=== PATIENT | female | born 1985 | race Caucasian/White ===

== ENCOUNTER → 2019-12-29 09:32 | Outpatient (BNVA) | payer MEDICAID, SELFPAY | PROVIDERS: Family Provider Nurse Practitioner Family; Referring Provider Nurse Practitioner Family; Visit Provider Internal Medicine | DX: E03.9 Hypothyroidism, unspecified (principal); E66.9 Obesity, unspecified; Z87.42 Personal history of other diseases of the female genital tract | CPT/HCPCS: 99204 ==

== ENCOUNTER 2021-01-14 15:26 | Emergency (ER) | payer MEDICAID, SELFPAY ==
[2021-01-14 15:43] VITALS: BP 139/90; PULSE 106; RESP 24; TEMP 36.7; O2SAT 96; BMI 34.4
[2021-01-14 17:00] VITALS: BP 158/100; PULSE 112; RESP 28; O2SAT 94
--- NOTE | 2021-01-14 17:09 | XRR_ITS ---
PROCEDURE INFORMATION: Exam: XR Chest Exam date and time: 01/14/2021 5:09 PM Age: 36 years old Clinical indication: Shortness of breath; Additional info: Dyspnea/cough TECHNIQUE: Imaging protocol: XR of the chest. Views: 1 view. COMPARISON: [place] Chest 1 [place] [id number] 07/09/2018 3:23 PM FINDINGS: Lungs: Small areas of patchy ground-glass foci at the left lung base laterally. Reduced lung volumes. Some increase in streak like infrahilar interstitial markings in the medial right lower lobe. Pleural spaces: Unremarkable. No pleural effusion. No pneumothorax. Heart/Mediastinum: Unremarkable. No cardiomegaly. Bones/joints: Unremarkable. XR/XR chest 1V portable [id number] IMPRESSION: Cannot exclude small patchy areas of nonspecific pneumonia in the lung bases greater on left than right. Radiation Dose CTDIVOL = (mGy): DLP = (mGy-cm)
--- NOTE | 2021-01-14 17:10 | W.ED.CHESTPA ---
Documented by User: Singh Erazo DO 01/16/21 06:51 HPI - Chest Pain General: Chief Complaint: Chest Pain Stated Complaint: CP, RAPID HR Time Seen by Provider: 01/14/21 16:46 History of Present Illness: HPI narrative: 36-year-old female presents emergency room with several days of chest discomfort. She states is very positional when she lays when she lays down it gets worse it also gets worse when she coughs. She has coughed up to the point of throwing up, but she is not had any nausea or diarrhea. No fever. Pain is reproducible with palpation along the right side of the sternum. She has some mild chest discomfort at this time it is very reproducible with palpation across the sternum. MD complaint: chest pain Onset (ago): day(s) Timing of current episode: episodic Onset: during rest Pain location: parasternal (right) Pain radiation: none Quality: sharp Exacerbating factors: palpation Associated symptoms: Reports palpitations and vomiting; Deny abdominal pain, diaphoresis, dyspnea, fever(s), leg edema, nausea, sense of impending doom or syncope Treatment prior to arrival: none Review of Systems Const: Denies: fever(s) or diaphoresis ENMT: Denies: throat pain, ear or mastoid pain, nasal discharge or nasal congestion Card: Reports: palpitations; Denies: syncope Resp: Denies: dyspnea GI: Reports: vomiting; Denies: abdominal pain or nausea : Denies: flank pain, difficulty voiding, dysuria, urinary frequency or urinary urgency Skin/Breast: Denies: rash or pruritus PFS ED PFSH: Medical History Bipolar 1 disorder PTSD (post-traumatic stress disorder) Tubal ligation evaluation Surgical History H/O foot surgery Family History Mother CAD (coronary artery disease) Father Stroke Myocardial infarction Grandmother Cancer Social History Smoking and tobacco status: former smoker Alcohol intake: never Physical Exam Const: COMMON NORMALS: no acute distress GENERAL APPEARANCE: cooperative and comfortable ORIENTATION/CONSCIOUSNESS: Yes awake, Yes oriented to person, Yes oriented to place and Yes oriented to time HENMT: COMMON NORMALS: normocephalic, atraumatic and hearing grossly normal bilaterally HEAD & SCALP: normocephalic and atraumatic Neck/C-Spine: COMMON NORMALS: no JVD Resp: COMMON NORMALS: normal respiratory effort, No retractions, No use of accessory muscles and clear to auscultation bilaterally AUSCULTATION: clear to auscultation bilaterally Cardio: COMMON NORMALS: no JVD, regular rate, regular rhythm and No murmurs present (Cardio) RATE: regular rate RHYTHM: regular rhythm GI: COMMON NORMALS: Soft to palpation and No hepatosplenomegaly present AUSCULTATION: Yes normoactive bowel sounds PALPATION: Yes Soft to palpation, No Tenderness to palpation present (GI), No Guarding due to palpation present (GI) and Yes No hepatosplenomegaly present Extremity: COMMON NORMALS: normal to inspection, capillary refill normal, no clubbing, cyanosis or edema, no calf tenderness and no pedal edema Neuro: SENSORIUM/ORIENTATION: Yes oriented to person, Yes oriented to place and Yes oriented to time Skin: COMMON NORMALS: no rashes or lesions noted GENERAL SKIN EXAM: no rashes or lesions noted Course Vital Signs: Vital signs: Vital Signs Temperature 98.0 F 01/14/21 15:43 Pulse Rate 108 H 01/14/21 22:22 Respiratory Rate 23 H 01/14/21 22:22 Blood Pressure 138/99 01/14/21 22:22 Pulse Oximetry 99 01/14/21 22:22 MDM - Chest Pain MDM Narrative: Medical decision making narrative: Care turned over to Dr. Dowling at change shift see his notes from diagnosis and disposition. Lab Data: Labs: Lab Results 01/14/21 01/14/21 01/14/21 17:33 17:33 17:33 WBC 4.3 10^3/uL 10^3/ uL (4.0-10.0) RBC 5.53 10^6/uL H 10 ^6/uL (4.1-5.3) Hgb 16.7 g/dL H g/dL (11.5-15.3) Hct 49.6 % H % (37.0-47.0) MCV 89.7 fl fl (81-99) MCH 30.2 pg pg (28.0-34.0) MCHC 33.7 g/dL g/dL (30.0-36.0) RDW 12.6 % % (12.1-15.1) Plt Count 229 10^3/cmm 10^3 /cmm (130-400) MPV 10.2 fL fL (7.4-10.4) Neut % (Auto) 65.5 % % Lymph % (Auto) 24.9 % % Ector % (Auto) 9.2 % % Eos % (Auto) 0.0 % % Baso % (Auto) 0.2 % % Neut # (Auto) 2.84 10^3/uL 10^3 /uL (1.8-7.7) Lymph # (Auto) 1.1 10^3/uL 10^3/ uL (0.8-4.8) Ector # (Auto) 0.4 10^3/uL 10^3/ uL (0.2-0.9) Eos # (Auto) 0.0 10^3/uL 10^3/ uL (0.0-0.8) Baso # (Auto) 0.0 10^3/uL 10^3/ uL (0.0-0.1) Nucleated RBC % (a uto) 0 % % Nucleated RBCs # 0.0 /100WBC /100W BC D-Dimer Sodium 136 mmol/L mmol/L (136-145) Potassium 3.1 mmol/L L mmol /L (3.5-5.1) Chloride 96 mmol/L L mmol/ L (98-107) Carbon Dioxide 29 mmol/L mmol/L (22-29) Anion Gap 14.1 (5-19) BUN 6 mg/dL mg/dL (6-20) Creatinine 0.5 mg/dL mg/dL (0.5-0.9) GFR Calculation 138.8 mL/min H mL /min (90-130) Glucose 96 mg/dL mg/dL (65-115) Calculated Osmolal ity 279 mOsm/kg L mOs m/kg (285-295) Calcium 8.7 mg/dL mg/dL (8.5-10.5) Total Bilirubin 0.8 mg/dL mg/dL (0.15-1.2) AST 39 U/L H U/L (0-32) ALT 50 U/L H U/L (0-33) Alkaline Phosphata se 110 IU/L H IU/L (35-105) Troponin T Baselin e 6 ng/L ng/L (0-10) Troponin T 120 [place] Troponin T Total Protein 7.1 g/dL g/dL (6.6-8.7) Albumin 4.3 g/dL g/dL (3.5-5.2) Globulin 2.8 g/dL g/dL (1.3-4.6) 01/14/21 01/14/21 17:33 19:50 WBC RBC Hgb Hct MCV MCH MCHC RDW Plt Count MPV Neut % (Auto) Lymph % (Auto) Ector % (Auto) Eos % (Auto) Baso % (Auto) Neut # (Auto) Lymph # (Auto) Ector # (Auto) Eos # (Auto) Baso # (Auto) Nucleated RBC % (a uto) Nucleated RBCs # D-Dimer 0.32 ug/mIFEU ug/ mIFEU (0-0.59) Sodium Potassium Chloride Carbon Dioxide Anion Gap BUN Creatinine GFR Calculation Glucose Calculated Osmolal ity Calcium Total Bilirubin AST ALT Alkaline Phosphata se Troponin T Baselin e Troponin T 120 [place] 6.00 ng/L ng/L (0-10) Delta Troponin T 0 ABS# ABS# (0-10) Total Protein Albumin Globulin Discharge Plan Discharge Patient Disposition: Home Clinical Impression: Chest pain, Cough, Pneumonia Condition: Stable Prescriptions: New acetaminophen 500 mg tablet 500 mg PO Q6H PRN (Reason: pain) 10 Days Qty: 40 RF: 0 doxycycline hyclate 100 mg tablet 100 mg PO BID 10 Days Qty: 20 RF: 0 No Action buspirone 15 mg tablet 15 mg PO BID RF: 0 ibuprofen 800 mg tablet 800 mg PO TID RF: 0 Latuda 40 mg tablet 40 mg PO DAILY RF: 0 miconazole nitrate 2 % cream 1 applic TOPICAL DAILY RF: 0 norgestimate-ethinyl estradiol [Tri-Sprintec (28)] 0.18/0.215/0.25 mg-35 mcg (28) tablet 1 tab PO DAILY RF: 0 azithromycin [Zithromax Z-Mo] 250 mg tablet See Rx Instructions PO .COMPLEX RF: 0 Tirosint 13 mcg capsule 13 mcg PO DAILY Qty: 90 RF: 0 Discharge Orders: Discharge ED (Routine); Ordered 01/14/21 Ordered By: To Dowling Referrals: Radha Ron FNP-C [Primary Care Provider] - Discharge Diet: Advance as tolerated Discharge Activity: Resume usual activity Patient Instructions: Chest Pain (ED) Activity Restrictions/Additional Instructions: Come back to the emergency room if your chest pain worsens, if any fever or chills, if have any new or concerning complaints. Stand Alone Forms: Work/School Release Coding Level of Care Code ED Records Analyst for Chg Fwd Exam Comprehensive Documented by User: To Dowling MD 01/17/21 20:16 HPI - Chest Pain General: Chief Complaint: Chest Pain Stated Complaint: CP, RAPID HR Time Seen by Provider: 01/14/21 16:46 PFSH ED PFSH: Medical History Bipolar 1 disorder PTSD (post-traumatic stress disorder) Tubal ligation evaluation Surgical History H/O foot surgery Family History Mother CAD (coronary artery disease) Father Stroke Myocardial infarction Grandmother Cancer Social History Smoking and tobacco status: former smoker Alcohol intake: never Course Vital Signs: Vital signs: Vital Signs Temperature 98.0 F 01/14/21 15:43 Pulse Rate 108 H 01/14/21 22:22 Respiratory Rate 23 H 01/14/21 22:22 Blood Pressure 138/99 01/14/21 22:22 Pulse Oximetry 99 01/14/21 22:22 MDM - Chest Pain MDM Narrative: Medical decision making narrative: 36-year-old female presenting to the emergency room with sudden onset of chest pain. On exam, patient is hemodynamically stable without any focal complaints. EKG is nonischemic today. Troponin x2 within normal limit. D-dimer within normal limit. Patient says the pain improved with Tylenol. Patient is able to tolerate p.o. without difficult. Chest x-ray showed small area of atelectasis. However patient has not had any cough, fever, sputum production and I do not suspect that this is pneumonia. Decision was made to not DC patient with antibiotics at this time. Doubt ACS/PE or other emergent causes of chest pain. No suspicion for aortic dissection given no widened mediastinum, 2+ upper extremity pulses, or tearing pain. No suspicion for PE given no pleuritic chest pain, recent immobilization or surgery hemoptysis, or other VTE risk factors. EKG is non-ischemic. XR showed possible PNA. In the setting of cough and prior PNA, will treat today. Rx doxycycline BID x 10 days. Disposition: Discharge. Patient counseled regarding diagnostic impression, treatment plan. Patient given ED strict return precautions to return for continuation, worsening, or development of new symptoms. Instructed to f/u w/ PCP regarding symptoms today. Patient verbalized understanding. Lab Data: Labs: Lab Results 01/14/21 01/14/21 01/14/21 17:33 17:33 17:33 WBC 4.3 10^3/uL 10^3/ uL (4.0-10.0) RBC 5.53 10^6/uL H 10 ^6/uL (4.1-5.3) Hgb 16.7 g/dL H g/dL (11.5-15.3) Hct 49.6 % H % (37.0-47.0) MCV 89.7 fl fl (81-99) MCH 30.2 pg pg (28.0-34.0) MCHC 33.7 g/dL g/dL (30.0-36.0) RDW 12.6 % % (12.1-15.1) Plt Count 229 10^3/cmm 10^3 /cmm (130-400) MPV 10.2 fL fL (7.4-10.4) Neut % (Auto) 65.5 % % Lymph % (Auto) 24.9 % % Ector % (Auto) 9.2 % % Eos % (Auto) 0.0 % % Baso % (Auto) 0.2 % % Neut # (Auto) 2.84 10^3/uL 10^3 /uL (1.8-7.7) Lymph # (Auto) 1.1 10^3/uL 10^3/ uL (0.8-4.8) Ector # (Auto) 0.4 10^3/uL 10^3/ uL (0.2-0.9) Eos # (Auto) 0.0 10^3/uL 10^3/ uL (0.0-0.8) Baso # (Auto) 0.0 10^3/uL 10^3/ uL (0.0-0.1) Nucleated RBC % (a uto) 0 % % Nucleated RBCs # 0.0 /100WBC /100W BC D-Dimer Sodium 136 mmol/L mmol/L (136-145) Potassium 3.1 mmol/L L mmol /L (3.5-5.1) Chloride 96 mmol/L L mmol/ L (98-107) Carbon Dioxide 29 mmol/L mmol/L (22-29) Anion Gap 14.1 (5-19) BUN 6 mg/dL mg/dL (6-20) Creatinine 0.5 mg/dL mg/dL (0.5-0.9) GFR Calculation 138.8 mL/min H mL /min (90-130) Glucose 96 mg/dL mg/dL (65-115) Calculated Osmolal ity 279 mOsm/kg L mOs m/kg (285-295) Calcium 8.7 mg/dL mg/dL (8.5-10.5) Total Bilirubin 0.8 mg/dL mg/dL (0.15-1.2) AST 39 U/L H U/L (0-32) ALT 50 U/L H U/L (0-33) Alkaline Phosphata se 110 IU/L H IU/L (35-105) Troponin T Baselin e 6 ng/L ng/L (0-10) Troponin T 120 [place] Troponin T Total Protein 7.1 g/dL g/dL (6.6-8.7) Albumin 4.3 g/dL g/dL (3.5-5.2) Globulin 2.8 g/dL g/dL (1.3-4.6) 01/14/21 01/14/21 17:33 19:50 WBC RBC Hgb Hct MCV MCH MCHC RDW Plt Count MPV Neut % (Auto) Lymph % (Auto) [place] % (Auto) Eos % (Auto) Baso % (Auto) Neut # (Auto) Lymph # (Auto) [place] # (Auto) Eos # (Auto) Baso # (Auto) Nucleated RBC % (a uto) Nucleated RBCs # D-Dimer 0.32 ug/mIFEU ug/ mIFEU (0-0.59) Sodium Potassium Chloride Carbon Dioxide Anion Gap BUN Creatinine GFR Calculation Glucose Calculated Osmolal ity Calcium Total Bilirubin AST ALT Alkaline Phosphata se Troponin T Baselin e Troponin T 120 [place] 6.00 ng/L ng/L (0-10) Delta Troponin T 0 ABS# ABS# (0-10) Total Protein Albumin Globulin Imaging Data^: Other Imaging: Radiologist's impression: [address] [id number] ReportSigned Patient: Nerissa Mckinney IUnit #: [id number]: 1985Acct#:[id number]/Sex: 36 / FADM Date: 01/14/21Loc: ERRoom/Bed:Attending Dr: Ordering Provider/Ordering MD: Singh Erazo DO Date of Service: 01/14/21 Procedure(s): XR chest 1V portable [id number] Accession Number(s): [id number] Report Number: [id number] PROCEDURE INFORMATION: Exam: XR Chest Exam date and time: 01/14/2021 5:09 PM Age: 36 years old Clinical indication: Shortness of breath; Additional info: Dyspnea/cough TECHNIQUE: Imaging protocol: XR of the chest. Views: 1 view. COMPARISON: MD Chest 1 [place] [id number] 07/09/2018 3:23 PM FINDINGS: Lungs: Small areas of patchy ground-glass foci at the left lung base laterally. Reduced lung volumes. Some increase in streak like infrahilar interstitial markings in the medial right lower lobe. Pleural spaces: Unremarkable. No pleural effusion. No pneumothorax. Heart/Mediastinum: Unremarkable. No cardiomegaly. Bones/joints: Unremarkable. XR/XR chest 1V portable [id number] IMPRESSION: Cannot exclude small patchy areas of nonspecific pneumonia in the lung bases greater on left than right. Radiation Dose CTDIVOL = (mGy): DLP = (mGy-cm) Dictated By:Milka David By:Milka David Date/Time:01/14/211758DD/ 08 Discharge Plan Discharge Patient Disposition: Home Clinical Impression: Chest pain, Cough, Pneumonia Condition: Stable Prescriptions: New acetaminophen 500 mg tablet 500 mg PO Q6H PRN (Reason: pain) 10 Days Qty: 40 RF: 0 doxycycline hyclate 100 mg tablet 100 mg PO BID 10 Days Qty: 20 RF: 0 No Action buspirone 15 mg tablet 15 mg PO BID RF: 0 ibuprofen 800 mg tablet 800 mg PO TID RF: 0 Latuda 40 mg tablet 40 mg PO DAILY RF: 0 miconazole nitrate 2 % cream 1 applic TOPICAL DAILY RF: 0 norgestimate-ethinyl estradiol [Tri-Sprintec (28)] 0.18/0.215/0.25 mg-35 mcg (28) tablet 1 tab PO DAILY RF: 0 azithromycin [Zithromax Z-Mo] 250 mg tablet See Rx Instructions PO .COMPLEX RF: 0 Tirosint 13 mcg capsule 13 mcg PO DAILY Qty: 90 RF: 0 Discharge Orders: Discharge ED (Routine); Ordered 01/14/21 Ordered By: To Dowling Referrals: Radha Ron, [facility] [Primary Care Provider] - Discharge Diet: Advance as tolerated Discharge Activity: Resume usual activity Patient Instructions: Chest Pain (ED) Activity Restrictions/Additional Instructions: Come back to the emergency room if your chest pain worsens, if any fever or chills, if have any new or concerning complaints. Stand Alone Forms: Work/School Release Coding Level of Care Code ED Records Analyst for Chg Fwd Exam Comprehensive
[2021-01-14 17:47] LABS: Basophils % 0.2 %; Hematocrit 49.6 % (37.0-47.0); Hemoglobin 16.7 g/dL (11.5-15.3); Lymphocytes # 1.1 10^3/uL (0.8-4.8); Lymphocytes % 24.9 %; Mean Corpuscular HGB Conc 33.7 g/dL (30.0-36.0); Mean Corpuscular Hemoglobin 30.2 pg (28.0-34.0); Mean Corpuscular Volume 89.7 fl (81-99); Mean Platelet Volume 10.2 fL (7.4-10.4); Monocytes # 0.4 10^3/uL (0.2-0.9); Monocytes % 9.2 %; Neutrophils # 2.84 10^3/uL (1.8-7.7); Neutrophils % 65.5 %; Nucleated Red Blood Cells % 0 %; Platelet Count 229 10^3/cmm (130-400); Red Blood Count 5.53 10^6/uL (4.1-5.3); Red Cell Distribution Width 12.6 % (12.1-15.1); White Blood Count 4.3 10^3/uL (4.0-10.0)
[2021-01-14 18:28] LABS: Alanine Aminotransferase 50 U/L (0-33); Albumin Level 4.3 g/dL (3.5-5.2); Alkaline Phosphatase 110 IU/L (35-105); Anion Gap 14.1 (5-19); Aspartate Amino Transferase 39 U/L (0-32); Blood Urea Nitrogen 6 mg/dL (6-20); Calcium 8.7 mg/dL (8.5-10.5); Carbon Dioxide 29 mmol/L (22-29); Chloride 96 mmol/L (98-107); Globulin 2.8 g/dL (1.3-4.6); Glomerular Filtration Rate 138.8 mL/min (90-130); Glucose 96 mg/dL (65-115); Osmolality Calculated 279 mOsm/kg (285-295); Potassium 3.1 mmol/L (3.5-5.1); Sodium 136 mmol/L (136-145); Total Bilirubin 0.8 mg/dL (0.15-1.2); Total Protein 7.1 g/dL (6.6-8.7)
[2021-01-14 18:29] LABS: Troponin(5th) Baseline 6 ng/L (0-10)
--- NOTE | 2021-01-14 19:24 | PC.NURSE ---
Report from SHALINI Stokes
[2021-01-14 19:35] VITALS: BP 160/94; PULSE 99; O2SAT 95
[2021-01-14] MEDS: acetaminophen 500 mg Tablet 1000 MG PO (20:03)
[2021-01-14 20:06] LABS: D Dimer 0.32 ug/mIFEU (0-0.59)
[2021-01-14 20:52] LABS: Troponin 5 2HR Delta 0 ABS# (0-10)
[2021-01-14 22:22] VITALS: BP 138/99; PULSE 108; RESP 23; O2SAT 99
== END 2021-01-14 22:25 | disposition home or self-care (01) ==
PROVIDERS: Family Medicine; Emergency Provider Emergency Medicine; PCP Nurse Practitioner Family
DX: R07.9 Chest pain, unspecified (principal); J18.9 Pneumonia, unspecified organism; Z87.891 Personal history of nicotine dependence
CPT/HCPCS: 71045; 80053; 84484; 85025; 85378; 99283

== ENCOUNTER → 2021-01-22 13:24 | Outpatient (BNVA) | payer MEDICAID, SELFPAY | PROVIDERS: PCP Nurse Practitioner Family; Referring Provider Nurse Practitioner Family; Visit Provider Internal Medicine | DX: E87.6 Hypokalemia (principal); I10 Essential (primary) hypertension; Z87.891 Personal history of nicotine dependence | CPT/HCPCS: 99214 ==

== ENCOUNTER 2021-01-22 14:35 | Outpatient (CLI) | payer MEDICAID, SELFPAY ==
[2021-01-22 15:29] LABS: Anion Gap 14.5 (5-19); Blood Urea Nitrogen 10 mg/dL (6-20); Calcium 8.8 mg/dL (8.5-10.5); Carbon Dioxide 26 mmol/L (22-29); Chloride 105 mmol/L (98-107); Glomerular Filtration Rate 138.8 mL/min (90-130); Glucose 88 mg/dL (65-115); Osmolality Calculated 292 mOsm/kg (285-295); Potassium 3.5 mmol/L (3.5-5.1); Sodium 142 mmol/L (136-145)
== END 2021-01-22 14:36 | disposition home or self-care (01) ==
LOC: LAB 14:39
PROVIDERS: PCP Nurse Practitioner Family; Visit Provider Internal Medicine
DX: E87.6 Hypokalemia (principal)
CPT/HCPCS: 80048

== ENCOUNTER 2021-01-31 14:36 | Outpatient (CLI) | payer MEDICAID, SELFPAY ==
[2021-01-31 15:44] LABS: Anion Gap 16.6 (5-19); Blood Urea Nitrogen 5 mg/dL (6-20); Calcium 9.1 mg/dL (8.5-10.5); Carbon Dioxide 24 mmol/L (22-29); Chloride 100 mmol/L (98-107); Glomerular Filtration Rate 112.5 mL/min (90-130); Glucose 90 mg/dL (65-115); Osmolality Calculated 281 mOsm/kg (285-295); Potassium 3.6 mmol/L (3.5-5.1); Sodium 137 mmol/L (136-145)
[2021-02-06 00:32] LABS: Plasma Renin Activity LC/MS/MS 43.78 ng/mL/h (0.25-5.82)
== END 2021-01-31 14:37 | disposition home or self-care (01) ==
PROVIDERS: PCP Nurse Practitioner Family; Visit Provider Internal Medicine
DX: E87.6 Hypokalemia (principal); E03.9 Hypothyroidism, unspecified
CPT/HCPCS: 36415; 80048; 82088; 84244

== ENCOUNTER 2021-02-07 17:21 | Outpatient (CLI) | payer MEDICAID, SELFPAY ==
[2021-02-19 20:27] LABS: Free Cortisol Urine 12.1 mcg/24 h (4.0-50.0); Total Urine 1475 mL; Urine Creatinine 1.89 g/24 h (0.50-2.15)
== END 2021-02-07 17:22 | disposition home or self-care (01) ==
LOC: LAB 17:24
PROVIDERS: PCP Nurse Practitioner Family; Visit Provider Internal Medicine
DX: E03.9 Hypothyroidism, unspecified (principal); E87.6 Hypokalemia
CPT/HCPCS: 82530

== ENCOUNTER 2021-03-07 10:18 | Outpatient (CLI) | payer MEDICAID, SELFPAY ==
[2021-03-07 11:25] LABS: Anion Gap 12.9 (5-19); Blood Urea Nitrogen 6 mg/dL (6-20); Carbon Dioxide 28 mmol/L (22-29); Chloride 101 mmol/L (98-107); Glomerular Filtration Rate 112.5 mL/min (90-130); Glucose 98 mg/dL (65-115); Osmolality Calculated 284 mOsm/kg (285-295); Potassium 3.9 mmol/L (3.5-5.1); Sodium 138 mmol/L (136-145)
[2021-03-07 11:57] LABS: Cortisol Random 11.04 ug/dL (2.47-19.5)
[2021-03-10 12:18] LABS: Dehydroepiandrosterone Sulfate 135 mcg/dL (23-266)
[2021-03-11 12:53] LABS: Plasma Renin Activity LC/MS/MS 14.21 ng/mL/h (0.25-5.82)
== END 2021-03-07 10:19 | disposition home or self-care (01) ==
PROVIDERS: PCP Nurse Practitioner Family; Visit Provider Internal Medicine
DX: E03.9 Hypothyroidism, unspecified (principal); E66.9 Obesity, unspecified; E87.6 Hypokalemia
CPT/HCPCS: 36415; 80048; 82088; 82533; 82627; 84244

== ENCOUNTER → 2021-03-10 12:04 | Day surgery (SDC) | payer MEDICAID, SELFPAY ==
[2021-03-10] MEDS: cosyntropin 0.25 mg SDV IVP (12:37)
[2021-03-10 12:50] VITALS: BP 144/95; PULSE 76; RESP 18; TEMP 36.1; O2SAT 99
[2021-03-10 14:09] LABS: Cosyntropin Baseline 11.35 mcg/dL
[2021-03-10 14:32] LABS: Cosyntropin 30 Minute 11.34 mcg/dL
[2021-03-10 14:39] LABS: Cosyntropin 1 Hour 26.94 mcg/dL
== END ==
PROVIDERS: PCP Nurse Practitioner Family; Visit Provider Internal Medicine
DX: E03.9 Hypothyroidism, unspecified (principal); E66.9 Obesity, unspecified; E87.6 Hypokalemia; Z68.34 Body mass index [BMI] 34.0-34.9, adult
CPT/HCPCS: 36415; 82533; 96374; J0834

== ENCOUNTER → 2021-03-13 08:12 | Outpatient (BNVA) | payer MEDICAID, SELFPAY | PROVIDERS: PCP Nurse Practitioner Family; Visit Provider Internal Medicine | DX: E87.6 Hypokalemia (principal); E26.1 Secondary hyperaldosteronism; R79.89 Other specified abnormal findings of blood chemistry; I10 Essential (primary) hypertension | CPT/HCPCS: 99213; 99214 ==

== ENCOUNTER → 2021-04-18 09:42 | Outpatient (BNVA) | payer MEDICAID, SELFPAY | PROVIDERS: PCP Nurse Practitioner Family; Visit Provider Internal Medicine | DX: E27.9 Disorder of adrenal gland, unspecified (principal); E87.6 Hypokalemia; R79.89 Other specified abnormal findings of blood chemistry; E26.1 Secondary hyperaldosteronism; R68.82 Decreased libido; Z87.891 Personal history of nicotine dependence | CPT/HCPCS: 99214 ==

== ENCOUNTER 2021-04-18 10:26 | Outpatient (CLI) | payer MEDICAID, SELFPAY ==
[2021-04-18 11:20] LABS: Anion Gap 15.8 (5-19); Blood Urea Nitrogen 7 mg/dL (6-20); Calcium 8.6 mg/dL (8.5-10.5); Carbon Dioxide 26 mmol/L (22-29); Chloride 101 mmol/L (98-107); Glomerular Filtration Rate 138.8 mL/min (90-130); Glucose 106 mg/dL (65-115); Osmolality Calculated 286 mOsm/kg (285-295); Potassium 3.8 mmol/L (3.5-5.1); Sodium 139 mmol/L (136-145)
[2021-04-18 11:26] LABS: Testosterone Total 31.9 ng/dL (8.4-48.1)
[2021-04-21 16:42] LABS: Dehydroepiandrosterone Sulfate 188 mcg/dL (23-266)
== END 2021-04-18 10:27 | disposition home or self-care (01) ==
PROVIDERS: PCP Nurse Practitioner Family; Visit Provider Internal Medicine
DX: E27.9 Disorder of adrenal gland, unspecified (principal); E87.6 Hypokalemia
CPT/HCPCS: 36415; 80048; 82627; 84403

== ENCOUNTER 2021-04-23 13:03 | Outpatient (CLI) | payer MEDICAID, SELFPAY ==
--- NOTE | 2021-04-23 14:00 | CT_ITS ---
WS: [id number] CT ANGIOGRAPHY abdomen and pelvis. HISTORY: r/o renovascular HTN or reninoma TECHNIQUE: CT angiogram is performed during IV injection. Reformation images reviewed. All CT scans a [employer] use at least one of these dose optimization techniques: automated exposure contro l; mA and/or kV adjustment per patient size (includes targeted exams where dose is matched to clinica l indication); or iterative reconstruction. CONTRAST: Omnipaque 350; 95 mL IV. DLP: 1529.04 mGycm COMPARISON: None available. Lung bases are clear. No cardiomegaly. No hiatal hernia. Marked enlargement of the liver with diffuse severe changes of hepatic steatosis. No mass identified. Variable hepatic enhancement. The portal vein is difficult to visualize due to early enhancement. Ga llbladder and pancreas are negative. Normal size spleen. No adrenal mass. Normal kidneys. There is sy mmetric normal renal enhancement. No renal atrophy or cortical thinning or scarring. Abdominal aorta: Normal appearance of the aorta from the diaphragm into the pelvis through the iliac arteries. There is no aneurysm or occlusion. No stenosis or significant atherosclerosis. There is a n ormal appearance of the celiac axis and SMA. Normal size bilateral renal arteries. No accessory renal artery identified. No aneurysms. Normal bifurcation of aorta. Normal common, internal and external iliac arteries. No ascites or adenopathy. No GI tract obstruction. The appendix not definitely visualized. There are no inflammatory changes. There is a focal soft tissue low attenuation mass which extends into the asc ending colon in the RIGHT lower quadrant. This may be dilated small bowel loop but the soft tissue ex tends into the ascending colon. This should be further evaluated for possible neoplasm. [place] un its are low suggesting this may be fluid filled loop of bowel. Uterus is anteverted. Peripherally enhancing nodules within the RIGHT ovary most likely collapsing co rpus luteal cysts. CT/CT angio abdomen pelvis [id number] IMPRESSION: 1. Normal renal arteries. 2. No renal atrophy or cortical thinning. 3. Marked hepatomegaly and hepatic steatosis. 4. Further evaluation is necessary of the soft tissue mass in the RIGHT lower quadrant which is contiguous with the ascending colon. This may be a dilated sm all bowel loop but needs further evaluation due to the soft tissue extension in to the colon. Follow-up CT abdomen and pelvis with IV and good oral contrast is recommended.
[2021-04-23] MEDS: iohexol 350 mg/mL 100 mL Btl IV (14:48)
== END 2021-04-23 13:04 | disposition home or self-care (01) ==
PROVIDERS: PCP Nurse Practitioner Family; Visit Provider Internal Medicine
DX: I10 Essential (primary) hypertension (principal); R79.89 Other specified abnormal findings of blood chemistry; R16.0 Hepatomegaly, not elsewhere classified; K76.0 Fatty (change of) liver, not elsewhere classified
CPT/HCPCS: 74174; Q9967

== ENCOUNTER → 2023-11-08 14:13 | Outpatient (BNVA) | payer MEDICAID, SELFPAY | PROVIDERS: PCP Nurse Practitioner Family; Visit Provider Nurse Practitioner Family | DX: M79.671 Pain in right foot (principal) | CPT/HCPCS: 73630 ==

== ENCOUNTER 2024-02-23 15:01 | Outpatient (CLI) | payer MEDICAID, SELFPAY ==
--- NOTE | 2024-02-23 15:00 | MM_ITS ---
WS: [id number] Bilateral screening 3D tomosynthesis digital mammogram, 02/23/2024 3:09 PM Clinical Data: SCREENING Comparison: None. Findings: No spiculated masses or clustered calcifications are seen. There are no secondary signs of carcinoma . MM/MM scr BI tomosynthesis [id number] Impression: Negative bilateral mammogram with no prior exam for review. Recommend annual screening mammograms. BIRADS: 1 - Negative FOLLOW UP: 1 Year Follow-up DENSITY: The breasts are heterogeneously dense, which may obscure small masses. The CAD specifications checker was used
== END 2024-02-23 15:02 | disposition home or self-care (01) ==
LOC: MOBLMAM 15:17
PROVIDERS: PCP Nurse Practitioner Family; Visit Provider Nurse Practitioner Family
DX: Z12.31 Encounter for screening mammogram for malignant neoplasm of breast (principal)
CPT/HCPCS: 77063; 77067